=== PATIENT | female | born 1975 | race Caucasian/White ===

== ENCOUNTER 2017-10-19 15:34 | Emergency (ER) | payer BC, OTHER ==
[2017-10-19 16:03] VITALS: BP 138/87; PULSE 93; TEMP 98.5; BMI 26.7
[2017-10-19 16:25] LABS: HEMOGLOBIN 13.4 GM/dl (10.7-15.3)
[2017-10-19] MEDS ORDERED: SODIUM CHLORIDE 1,000 ML IV STA (16:29)
[2017-10-19] MEDS ORDERED: ACETAMINOPHEN 1000 MG/100 ML VIAL (NON FORMULARY) IVPB ONE (16:29)
--- NOTE | 2017-10-19 16:31 | PDOC ---
History of Present Illness - General Chief Complaint: Shortness of Breath Stated Complaint: shortness of breath Time Seen by Provider: 10/19/17 15:38 - History of Present Illness Initial Comments: 10/19/17 16:28 "The patient is a 42 year old female with no significant PMH who presents to the emergency department with R sided chest pain x 1 day. Pt states that she initially felt an ache in her R side and thought it was muscular. She went to sleep and then awoke suddenly with severe R sided chest pain. She states that it is worse with deep inspiration. She also endorses mild SOB. Pt denies any abdominal pain. Denies N/V. Denies F/C. Denies cough. The patient denies recent travel or sick contact. Patient is not on oral contraceptives, no leg swelling, no h/o DVT. The patient denies headache and dizziness. Denies fever, chills, nausea, vomit, diarrhea and constipation. Denies dysuria, frequency, urgency and hematuria. Allergies: NKA Past surgical history: Cholecystectomy 10 years ago. Social history: No reported alcohol, drug, or cigarette use. " Past History - Past Medical History Allergies/Adverse Reactions: Allergies Allergy/AdvReac Type Severity Reaction Status Date / Time No Known Allergies Allergy Verified 10/19/17 15:35 Home Medications: Ambulatory Orders NK [No Known Home Medication] 10/19/17 COPD: No Other medical history: pt denies - Surgical History Cholecystectomy: Yes - Suicide/Smoking/Psychosocial Hx Smoking History: Never smoked Hx Alcohol Use: No Drug/Substance Use Hx: No Substance Use Type: None Review of Systems - Review of Systems Comments:: 10/19/17 16:29 "GENERAL/CONSTITUTIONAL: No fever or chills. No weakness. HEAD, EYES, EARS, NOSE AND THROAT: No change in vision. No ear pain or discharge. No sore throat. CARDIOVASCULAR: + R sided chest pain, SOB RESPIRATORY: No cough, wheezing, or hemoptysis. GASTROINTESTINAL: No nausea, vomiting, diarrhea or constipation. GENITOURINARY: No dysuria, frequency, or change in urination. MUSCULOSKELETAL: No joint or muscle swelling or pain. No neck or back pain. SKIN: No rash NEUROLOGIC: No headache, vertigo, loss of consciousness, or change in strength/ sensation. ENDOCRINE: No increased thirst. No abnormal weight change. HEMATOLOGIC/LYMPHATIC: No anemia, easy bleeding, or history of blood clots. ALLERGIC/IMMUNOLOGIC: No hives or skin allergy. " *Physical Exam - Vital Signs Last Vital Signs Temp Pulse Resp BP Pulse Ox 98.5 F 93 H 16 138/87 100 10/19/17 15:35 10/19/17 15:35 10/19/17 15:35 10/19/17 15:35 10/19/17 15:35 - Physical Exam Comments: 10/19/17 16:30 "GENERAL: Awake, alert, and fully oriented, in no acute distress HEAD: No signs of trauma EYES: PERRLA, EOMI, sclera anicteric, conjunctiva clear ENT: Auricles normal inspection, hearing grossly normal, nares patent, oropharynx clear without exudates. Moist mucosa NECK: Nontender, no stepoffs, Normal ROM, supple, no lymphadenopathy, JVD, or masses LUNGS: Breath sounds equal, clear to auscultation bilaterally. No wheezes, and no crackles HEART: Regular rate and rhythm, normal S1 and S2, no murmurs, rubs or gallops ABDOMEN: Soft, nontender, normoactive bowel sounds. No guarding, no rebound. No masses EXTREMITIES: Normal range of motion, no edema. No clubbing or cyanosis. No cords, erythema, or tenderness NEUROLOGICAL: Cranial nerves II through XII intact. 5/5 strength and sensation in all extremities, Normal speech, normal gait, normal cerebellar function SKIN: Warm, Dry, normal turgor, no rashes or lesions noted. " Heart Score/ECG Review - History History: Slightly suspicious - Electrocardiogram EKG: Normal - Age Age: </= 45 - Risk Factors Based on the list above the patient has:: No risk factors known - Troponin Troponin: </= normal limit (NSR, no HARMONY/STDs, no TWIs, axis wnl, intervals wnl, rate 89) - Score Heart Score - Total: 0 ED Treatment Course - LABORATORY CBC & Chemistry Diagram: 10/19/17 16:10 10/19/17 16:10 - ADDITIONAL ORDERS Additional order review: Laboratory Results 10/19/17 10/19/17 10/19/17 16:50 16:10 16:10 D-Dimer 383 Sodium Potassium Chloride Carbon Dioxide Anion Gap BUN Creatinine Creat Clearance w eGFR Random Glucose Calcium Total Bilirubin AST ALT Alkaline Phosphatase Creatine Kinase Troponin I < 0.03 Total Protein Albumin Lipase Urine Color Yellow Urine Appearance Clear Urine pH 6.0 Ur Specific Savage 1.020 Urine Protein Negative Urine Glucose (UA) Negative Urine Ketones Negative Urine Blood 3+ H Urine Nitrite Negative Urine Bilirubin Negative Urine Urobilinogen 0.2 Ur Leukocyte Esterase Negative Urine RBC 0-2 Urine WBC 10-15 Ur Epithelial Cells Few Urine Bacteria Few Urine HCG, Qual Negative 10/19/17 16:10 D-Dimer Sodium 134 L Potassium 3.5 Chloride 102 Carbon Dioxide 23 Anion Gap 9 BUN 12 Creatinine < 0.8 Creat Clearance w eGFR > 60 Random Glucose 101 Calcium 8.9 Total Bilirubin 0.5 AST 20 ALT 18 Alkaline Phosphatase 62 Creatine Kinase 92 Troponin I Total Protein 7.1 Albumin 3.8 Lipase 197 Urine Color Urine Appearance Urine pH Ur Specific Savage Urine Protein Urine Glucose (UA) Urine Ketones Urine Blood Urine Nitrite Urine Bilirubin Urine Urobilinogen Ur Leukocyte Esterase Urine RBC Urine WBC Ur Epithelial Cells Urine Bacteria Urine HCG, Qual 10/19/17 16:10 RBC 4.34 MCV 88.9 MCHC 34.8 RDW 12.0 MPV 7.7 Neutrophils % 83.5 H Lymphocytes % 10.0 Monocytes % 4.9 Eosinophils % 1.4 Basophils % 0.2 - RADIOLOGY Radiology Studies Ordered: Category Date Time Status ABDOMEN & PELVIS CT W/O CONTR [CT] Stat CT Scan 10/19/17 17:25 Completed CHEST PA & LAT [RAD] Stat Radiology 10/19/17 16:02 Completed - Medications Given in the ED: ED Medications Discontinued Medications Generic Name Dose Route Start Last Admin Trade Name Freq PRN Reason Stop Dose Admin Acetaminophen 1,000 mg 10/19/17 16:29 10/19/17 16:53 Ofirmev Injection - IVPB 10/19/17 16:30 1,000 mg ONCE ONE Administration Sodium Chloride 1,000 mls @ 1,000 mls/hr 10/19/17 16:29 10/19/17 16:53 Normal Saline - IV 10/19/17 17:28 1,000 mls/hr ASDIR STA Administration Medical Decision Making - Medical Decision Making 10/19/17 16:30 42 F with pleuritic R side chest pain x 1 day. Pt with no signs of DVT on exam but given pleuritic nature and sudden onset of pain, must r/o PE. ACS unlikely as EKG Is completely normal. Will send single trop to r/o ACS. - Labs, dimer, trop - CXR - IVF, tylenol 10/19/17 17:26 UA shows 3+ blood. Pt re-evaluated, states pain still feels like it's in her chest but radiates towards her back as well. + R CVAT on exam. Pt states LMP was 2 weeks ago, denies any vaginal bleeding now. CT abd/pelv ordered to r/o kidney stone 10/19/17 19:12 Labs wnl, ddimer negative CT unremarkable other than dilated loop of small bowel. Also incidental finding of lung nodule. Pt informed that she needs to have repeat imaging in 3 months. Pt reassessed - tolerating PO, no evidence of bowel obstruction. Abdomen benign. Pt states that her pain has improved significantly after fluids and tylenol. Pt is well appearing, with normal vitals. Clinically stable for DC at this time. I discussed the physical exam findings, ancillary test results and final diagnoses with the patient. I answered all of the patient's questions. The patient was satisfied with the care received and felt comfortable with the discharge plan and treatment plan. The patient agrees to follow up with the primary care physician within 24-72 hours. *DC/Admit/Observation/Transfer Diagnosis at time of Disposition: Atypical chest pain - Discharge Dispostion Disposition: HOME Condition at time of disposition: Stable - Referrals - Patient Instructions Printed Discharge Instructions: DI for Atypical Chest Pain Additional Instructions: Your urine showed a small amount of blood in it today. Please follow up with your urologist about this. Your CT scan showed what may possibly be a nodule in your lung. You need to have a repeat CT scan in 3 months to make sure it does not change in size, as this can sometimes represent cancer. If you experience any worsening chest pain, shortness of breath, fevers, vomiting, abdominal pain, or any other concerning symptoms, return to the ER immediately. Otherwise, follow up with your primary doctor within 1 week for a re-evaluation. - Post Discharge Activity - Attestations Physician Attestion: 10/19/17 19:19 I, Dr. Pernell aRmirez MD, attest that this document has been prepared under my direction and personally reviewed by me in its entirety. I further attest, that it accurately reflects all work, treatment, procedures and medical decision -making performed by me.
[2017-10-19 16:34] LABS: BASO % 0.2 % (0-2.0); EOS % 1.4 % (0-4.5); HEMATOCRIT 38.6 % (32.4-45.2); MCH 30.9 pg (25.7-33.7); MCHC 34.8 g/dl (32.0-36.0); MEAN CELL VOLUME 88.9 fl (80-96); MEAN PLT VOLUME 7.7 fl (7.5-11.1); MONO % 4.9 % (3.8-10.2); NEUT % 83.5 % (42.8-82.8); PLATELET COUNT 330 K/MM3 (134-434); RBC 4.34 M/mm3 (3.60-5.2); WHITE BLOOD COUNT 12.7 K/mm3 (4.0-10.8)
[2017-10-19 16:40] LABS: ALBUMIN 3.8 g/dl (3.5-5.0); ALK PHOS 62 U/L (32-92); ANION GAP 9 (8-16); BILIRUBIN,TOTAL 0.5 mg/dl (0.2-1.0); BLOOD UREA NITROGEN 12 mg/dl (7-18); CALCIUM 8.9 mg/dl (8.4-10.2); CHLORIDE 102 mmol/L (98-107); CO2 23 mmol/L (22-28); GLUCOSE,RANDOM 101 mg/dl (74-106); POTASSIUM 3.5 mmol/L (3.5-5.1); SGOT/AST 20 U/L (10-42); SGPT/ALT 18 U/L (10-40); SODIUM 134 mmol/L (136-145); TOT PROT 7.1 g/dl (6.4-8.3)
[2017-10-19] MEDS ORDERED: ACETAMINOPHEN INJECTION 100 ML IVPB ONE (16:45)
[2017-10-19 16:48] LABS: CREATININE < 0.8 mg/dl (0.6-1.3)
[2017-10-19 16:58] LABS: URINE APPEARANCE Clear; URINE BILIRUBIN Negative (NEGATIVE); URINE GLUCOSE (UA) Negative (NEGATIVE); URINE KETONE Negative (NEGATIVE); URINE LEUK ESTERASE Negative (NEGATIVE); URINE NITRITE Negative (NEGATIVE); URINE PROTEIN Negative (NEGATIVE); URINE UROBILINOGEN 0.2 (0.2-1.0)
[2017-10-19 17:02] LABS: URINE BLOOD 3+ (NEGATIVE); URINE COLOR YELLOW
[2017-10-19 17:03] LABS: HCG,QUALITATIVE URINE NEGATIVE
[2017-10-19 17:48] LABS: EPI CELLS FEW /HPF; URINE BACTERIA FEW /hpf (NEGATIVE); URINE RBC 0-2 /hpf (0-3)
[2017-10-19 18:04] LABS: LIPASE 197 U/L (73-393)
--- NOTE | 2017-10-23 10:11 | EKG ---
Test Reason : Blood Pressure : / mmHG Vent. Rate : 089 BPM Atrial Rate : 089 BPM P-R Int : 118 ms QRS Dur : 088 ms QT Int : 378 ms P-R-T Axes : 049 043 036 degrees QTc Int : 459 ms NORMAL SINUS RHYTHM NORMAL ECG WHEN COMPARED WITH ECG OF 25-JUN-2012 11:32, NO SIGNIFICANT CHANGE WAS FOUND Confirmed by Nadir Scott MD ([id number]) on 10/23/2017 10:11:21 AM Referred By: Confirmed By:Nadir Scott MD
== END 2017-10-19 19:40 | disposition home or self-care (01) ==
LOC: FER 15:34
PROC: 3E033NZ Introduction of Analgesics, Hypnotics, Sedatives into Peripheral Vein, Percutaneous Approach (ICD-10-PCS; principal; 2017-10-19)
PROC: 3E0337Z Introduction of Electrolytic and Water Balance Substance into Peripheral Vein, Percutaneous Approach (ICD-10-PCS; 2017-10-19)
DX: R07.89 Other chest pain (principal); R91.1 Solitary pulmonary nodule
CPT/HCPCS: 36415; 71046-TC-FY; 74176-TC; 80053; 81003; 81015; 82550; 83690; 84484; 84703; 85025; 85379; 93005; 99282-25; J0131; J7030